=== PATIENT | female | born 1970 | race Caucasian/White ===

== ENCOUNTER 2022-01-22 07:34 | Outpatient (CLI) | payer OTHER, SELFPAY ==
--- NOTE | 2022-01-22 07:40 | MM_ITS ---
WS: [id number] VIEWS: MLO and CC views both breasts. 3D digital tomosynthesis is also included in this exam. No previous exams. Findings: Grouping of nonspecific calcifications seen in the upper outer quadrant of the right breast. No assoc iated mass or architectural distortion. Remaining aspects of both breasts were unremarkable. A 6 mon th follow-up right mammogram for surveillance would be recommended. Remaining aspects of both breasts were unremarkable. MM/[place] [id number] Impression: BI-RADS: 3-Probably Benign FOLLOW-UP: 6 Month Follow-up This mammogram was also analyzed by the Computer Aided Detection System R2 Imag e Media Operator.
== END 2022-01-22 07:35 | disposition home or self-care (01) ==
PROVIDERS: Family Provider Family Medicine; Visit Provider Physician Assistant
DX: Z12.31 Encounter for screening mammogram for malignant neoplasm of breast (principal)
CPT/HCPCS: 77063; 77067

== ENCOUNTER 2022-08-14 09:48 | Outpatient (CLI) | payer OTHER, SELFPAY ==
--- NOTE | 2022-08-14 09:53 | MM_ITS ---
WS: [id number] Right breast diagnostic 3D tomosynthesis digital mammogram, 08/14/2022 Clinical Data: 6M FOLLOW UP CALCS Comparison: 01/22/2022, 07/21/2019, 03/15/2013, 08/27/2010, 08/09/2009. Findings: There are faint calcifications in the upper outer quadrant of the right breast. They have not changed in size, number or character compared to the prior study. There are no associated masses. No spicula tions are seen. MM/[place] [id number] Impression: 1. Probable benign calcifications in upper outer quadrant right breast. 2. Recommend return to annual screening mammograms. BIRADS: 2-Benign FOLLOW UP: See Report The CAD unloading checker was used.
== END 2022-08-14 09:49 | disposition home or self-care (01) ==
LOC: RAD 09:49
PROVIDERS: Family Provider Family Medicine; Visit Provider Physician Assistant
DX: R92.1 Mammographic calcification found on diagnostic imaging of breast (principal)
CPT/HCPCS: 77061; G0279

== ENCOUNTER 2024-04-04 13:19 | Outpatient (CLI) | payer OTHER, SELFPAY ==
--- NOTE | 2024-04-04 13:28 | MM_ITS ---
WS: [id number] BILATERAL 3D TOMOSYNTHESIS DIGITAL SCREENING MAMMOGRAPHY WITH CAD CLINICAL INFORMATION: SCREENING HISTORY: Screening mammogram. No current complaints. COMPARISON: 2021 TECHNIQUE: Bilateral CC and MLO views. FINDINGS: Scattered fibroglandular densities bilaterally. No suspicious focal mass, asymmetry, calcifications, or architectural distortion. No evidence of malignancy. Tiny punctate calcifications upper outer RIGH T breast unchanged. MM/[place] [id number] IMPRESSION: BI-RADS: 2-Benign FOLLOW UP: 1 Year Follow-up Recommend return to annual screening mammography.
--- NOTE | 2024-04-04 13:28 | XR_ITS ---
WS: [id number] SCREENING DEXA SCAN [employer] CLINICAL INFORMATION: POSTMENOPAUSAL COMPARISON: None. FINDINGS: The L1-L4 bone mineral density measures 1.117 g/cm2. This corresponds to a T score score of -0.5 and Z score of -0.8. Left femoral neck bone mineral density measures 0.950 g/cm2. This corresponds to a T score of -0.5 an d Z score of -0.6. Right femoral neck bone mineral density measures 0.916 g/cm2. This corresponds to a T score -0.7of an d Z score of -0.9. Mean femoral neck bone mineral density measures 0.933 g/cm2. This corresponds to a T score of -0.6 an d Z score of -0.7. XR/XR DEXA axial skeleton* [id number] IMPRESSION: Normal bone mineralization lumbar spine and femoral necks. Patient's FRAX calculated 10 year probability for major osteoporotic fracture i s 5.6% and osteoporotic hip fracture is 0.3%.
== END 2024-04-04 13:20 | disposition home or self-care (01) ==
LOC: RAD 13:20
PROVIDERS: Family Provider Family Medicine; Visit Provider Physician Assistant
DX: Z12.31 Encounter for screening mammogram for malignant neoplasm of breast (principal); Z78.0 Asymptomatic menopausal state
CPT/HCPCS: 77063; 77067; 77080

== ENCOUNTER 2024-12-02 17:44 | Emergency (ER) | payer OTHER, SELFPAY ==
[2024-12-02 17:45] VITALS: BP 105/71; PULSE 48; RESP 16; TEMP 36.3; O2SAT 99; BMI 26.7
--- NOTE | 2024-12-02 17:51 | ED_ITS ---
HPI - Syncope 2 General: Chief Complaint: Syncope Stated Complaint: syncope Time Seen by Provider: 12/02/24 17:45 Source: patient Mode of arrival: ambulatory Limitations: no limitations History of Present Illness: 54-year-old female who states that she h ad given blood this evening at 4:00 states she had went to get gas after and when she got out of her car she started to feel very lightheaded nauseous did vomit and passed out for few seconds she denies hitting her head she states she feels improved currently still feels a little lightheaded she denies any chest pain or headache. Associated symptoms: Reports nausea; Deny abdominal pain, chest pain, fever(s) or headache(s) Related Data Previous Rx's ?Medication ?Instructions ?Recorded amoxicillin 875 mg tablet 875 mg PO BID 7 days #14 tab s 08/07/22 Allergies Allergy/AdvReac Type Severity Reaction Status Date / Time meperidine (From Demerol) Allergy Intermediate ADR-Diarrhe Verified 08/07/22 11:34 a Review of Systems 2 Const: Denies: fever(s), chills, body aches or change in appetite ENMT: Denies: throat pain or dental pain Card: Reports: syncope; Denies: chest pain Resp: Denies: dyspnea GI: Reports: nausea and vomiting; Denies: abdominal pain or diarrhea Musc: Denies: neck pain or back pain Skin/Breast: Denies: rash Neuro: Denies: headache(s) Physical Exam 2 Const: COMMON NORMALS: no acute distress, patient oriented x3 and healthy appearing HENMT: COMMON NORMALS: normocephalic and atraumatic HEAD & SCALP: n ormocephalic and atraumatic Eye: COMMON NORMALS: conjunctivae normal CONJUNCTIVA: Yes conjunctivae normal Neck/C-Spine: COMMON NORMALS: full ROM and supple Chest: COMMONS NORMALS: normal inspection of the chest Resp: COMMON NORMALS: normal respiratory effort, No retractions, No use of accessory muscles and clear to auscultation bilaterally AUSCULTATION: clear to auscultation bilaterally Cardio: COMMON NORMALS: regular rate, regular rhythm and No murmurs present (Cardio) RATE: regular rate RHYTHM: regular rhythm GI: COMMON NORMALS: Normal to inspection, nondistended, normoactive bowel sounds present, Soft to palpation, non-tender and no masses PALPATION: Yes Soft to palpation Extremity: COMMON NORMALS: normal to inspection and full ROM Neuro: COMMON NORMALS: patient oriented x3, moves all extremities and no focal motor deficits Psych: COMMON NORMALS: mental status grossly normal, Normal thought process present and cooperative THOUGHT PROCESS: Normal thought process present Skin: COMMON NORMALS: no rashes or lesions noted and no wounds GENERAL SKIN EXAM: no rashes or lesions noted Course 2 Vital Signs: Vital signs: Vital Signs Temperature 97.4 F L 12/02/24 17:45 Pulse Rate 61 12/02/24 18:36 Respiratory Rate 16 12/02/24 17:45 Blood Pressure 98/61 12/02/24 18:36 Pulse Oximetry 99 12/02/24 17:45 Oxygen Delivery Me thod Room Air 12/02/24 17:45 MDM - Syncope Medical Decision Making Patient presents here after a syncopal event is likely a vagal event from her giving blood she feels improved she has no orthostatics she stable for discharge did tell her to take it very easy through the night drink plenty of fluids she understands agrees to plan if she has any worsening she is to return Medical Records I reviewed the patient's medical records. Lab Data I reviewed the patient's lab results. 12/02/24 17:25 Laboratory Results WBC 8.28 10^3/uL (3.29-11.43) 12/02/24 17:25 RBC 4.60 10^6/uL (3.85-5.65) 12/02/24 17:25 Hgb 13.90 g/dL (11.27-16.99) 12/02/24 17:25 Hct 39.6 % (36-47) 12/02/24 17:25 MCV 86.1 fl (85-98) 12/02/24 17:25 MCH 30.2 pg (27-33) 12/02/24 17: MCHC 35.1 g/dL (30-55) 12/02/24 17:25 RDW 12.7 % (12.1-15.1) 12/02/24 17:25 Plt Count 287 10^3/cmm (157-399) 12/02/24 17: MPV 11.5 fL (7.4-10.4) H 12/02/24 17:25 Neut % (Auto) 54.7 % 12/02/24 17:25 Lymph % (Auto) 38.5 % 12/02/24 17:25 [place] % (Auto) 5.6 % 12/02/24 17:25 Eos % (Auto) 0.6 % 12/02/24 17:25 Baso % (Auto) 0.5 % 12/02/24 17:25 Neut # (Auto) 4.53 10^3/uL (1.8-7.7) 12/02/24 17:25 Lymph # (Auto) 3.2 10^3/uL (0.8-4.8) 12/02/24 17:25 [place] # (Auto) 0.5 10^3/uL (0.2-0.9) 12/02/24 17:25 Eos # (Auto) 0.1 10^3/uL (0.0-0.8) 12/02/24 17:25 Baso # (Auto) 0.0 10^3/uL (0.0-0.1) 12/02/24 17: Nucleated RBC % (auto) 0 % 12/02/24 17: Nucleated RBCs # 0.0 /100WBC 12/02/24 17:25 No radiology studies performed this visit EKG Data EKG 1: I personally reviewed and interpreted this EKG as follows: EKG interpretation date: 12/02/24 EKG interpretation time: 17:56 Interpretation: sinus erich hr [address] elevation qrs 85 qtc 426 Discharge Plan Discharge Patient Disposition: Home Clinical Impression: Vasovagal syncope Condition: Stable Prescriptions: No Action amoxicillin 875 mg tablet 875 mg PO BID 7 Days Qty: 14 0RF Discharge Orders: Discharge ED (Routine); Ordered 12/02/24 Ordered By: Juan Mendez Discharge Diet: Advance as tolerated Discharge Activity: Resume usual activity Patient Instructions: Syncope (ED) Print Language: Sudanese Coding Level of Care Code ED Handbag Finisher for Margarita Levnie
--- NOTE | 2024-12-02 17:56 | ECG_ITS ---
Bantr Test Date: 2024-12-02 Pat Name: Margo Esteban Department: Room: Gender: Female Hospital Director: : 1970 Requested By: Yoly Multani Order Number: [id number] Chidi MD: Kavon Nina M.D. Measurements Intervals [place] Rate: 52 P: 122 SD: 209 QRS: -20 QRSD: 85 T: 240 QT: 447 QTc: 417 Interpretive Statements SINUS BRADYCARDIA LOW QRS VOLTAGE IN PRECORDIAL LEADS [QRS DEFLECTION < 1.0 mV IN CHEST LEADS] POSSIBLE ANTERIOR MYOCARDIAL INFARCTION , PROBABLY OLD [30 ms Q WAVE IN V3/V4, OR R < 0.2 mV IN V4] No previous ECG available for comparison Electronically Signed On 12-03-2024 13:12:27 CDT by Kavon Nina M.D. [email or web address]
[2024-12-02 17:59] LABS: Basophils % 0.5 %; Eosinophils # 0.1 10^3/uL (0.0-0.8); Eosinophils % 0.6 %; Hematocrit 39.6 % (36-47); Lymphocytes # 3.2 10^3/uL (0.8-4.8); Lymphocytes % 38.5 %; Mean Corpuscular HGB Conc 35.1 g/dL (30-55); Mean Corpuscular Hemoglobin 30.2 pg (27-33); Mean Corpuscular Volume 86.1 fl (85-98); Mean Platelet Volume 11.5 fL (7.4-10.4); Monocytes # 0.5 10^3/uL (0.2-0.9); Monocytes % 5.6 %; Neutrophils # 4.53 10^3/uL (1.8-7.7); Neutrophils % 54.7 %; Nucleated Red Blood Cells % 0 %; Platelet Count 287 10^3/cmm (157-399); Red Cell Distribution Width 12.7 % (12.1-15.1); White Blood Count 8.28 10^3/uL (3.29-11.43)
[2024-12-02 18:36] VITALS: BP 92/70; BP 98/61; BP 99/72; PULSE 61; PULSE 63; PULSE 79
[2024-12-02 19:22] VITALS: BP 107/69; PULSE 58; O2SAT 100
== END 2024-12-02 19:23 | disposition home or self-care (01) ==
PROVIDERS: Emergency Medicine; Emergency Provider Emergency Medicine
DX: R55 Syncope and collapse (principal)
CPT/HCPCS: 85025; 93005; 99284

== ENCOUNTER 2025-08-07 07:55 | Outpatient (CLI) | payer OTHER, SELFPAY ==
--- NOTE | 2025-08-07 | MM_ITS ---
WS: [id number] SCREENING DIGITAL BREAST TOMOSYNTHESIS MAMMOGRAM WITH CAD HISTORY: ANNUAL SCREENING COMPARISON: 04/04/2024, 08/14/2022 Bilateral CC and MLO with tomosynthesis and synthetic mammography submitted. Computer aided detection analyzed. Breast composition: There are scattered areas of fibroglandular density. Small cluster of calcifications in the upper outer quadrant posterior RIGHT breast. Calcifications are increasing in number. This may be a calcification associated with the artery. Additional imaging at this time. Otherwise no mass is identified. No distortion. MM/MM scr tomosynthesis [id number] IMPRESSION: BI-RADS: 0 - Incomplete: Need additional imaging evaluation. FOLLOW UP: Need Additional Imaging RIGHT BREAST: Magnification views of suspicious calcification CC and MLO. True ML.
== END 2025-08-07 07:56 | disposition home or self-care (01) ==
PROVIDERS: PCP Physician Assistant; Visit Provider Physician Assistant
DX: Z12.31 Encounter for screening mammogram for malignant neoplasm of breast (principal); R92.323 Mammographic fibroglandular density, bilateral breasts; R92.1 Mammographic calcification found on diagnostic imaging of breast
CPT/HCPCS: 77063; 77067